=== PATIENT | male | born 1955 | race Caucasian/White ===

== ENCOUNTER → 2017-10-30 | Day surgery (SDC) | payer OTHER ==
[~2017-10-30] MED LIST: Midazolam 1 MG/ML 2 ML SDV ONE; Propofol 200 MG/20 ML SDV ONE; fentaNYL 100 MCG/2 ML SDV ONE
[2017-10-30] MEDS: Lactated Ringers 1,000 ML IV SCH (08:25)
--- NOTE | 2017-10-30 12:15 | OR ---
DATE OF PROCEDURE: 10/30/2017 PREOPERATIVE DIAGNOSES: 1. History of adenomatous colon polyps. 2. Father had colon cancer. POSTOPERATIVE DIAGNOSES: 1. Diverticulosis. 2. History of adenomatous colon polyps. 3. Father had colon cancer. PROCEDURE: Colonoscopy to the cecum. ANESTHESIA: IV anesthesia with monitored anesthesia care. SURGEON: Stephen Hall MD INDICATION: This 62-year-old white male is here for a colonoscopy. He has a personal history of adenomatous polyp, removed 5 years ago. His father also had colon cancer. I counseled him for the procedure including risks and alternatives, and he gave his informed consent to proceed. DESCRIPTION OF PROCEDURE: The patient was placed in the left lateral decubitus position. IV anesthesia was administered by the Anesthesia Service. Time-out was held. A rectal exam was performed, which was unremarkable. The flexible video Olympus colonoscope was introduced through his anus, up his rectum and out his colon, all the way to the cecum. En route, we saw a few scattered left-sided diverticula. There was no bleeding or inflammation associated with them. Once the cecum was reached, the scope was slowly withdrawn, examining the mucosa throughout. No additional mucosal abnormalities were noted. The scope was retroflexed in the rectum with the distal rectum appearing unremarkable. The scope was straightened and removed. He tolerated the procedure well. Stephen Hall MD /[id number]
== END ==
LOC: JP.SDS 08:09
PROVIDERS: ATTEND Surgery
DX: Z12.11 Encounter for screening for malignant neoplasm of colon (principal); K57.30 Diverticulosis of large intestine without perforation or abscess without bleeding; Z86.010 Personal history of colon polyps; Z80.0 Family history of malignant neoplasm of digestive organs; Z88.0 Allergy status to penicillin
CPT/HCPCS: 45378; J2250; J2704; J3010; J7120

== ENCOUNTER 2023-04-12 10:00 | Day surgery (SDC) | payer OTHER, MEDICARE ==
[2023-04-12] MEDS: Lactated Ringers 1,000 ML IV SCH (10:42)
[2023-04-12] MEDS ORDERED: fentaNYL 50 MCG/ML SDV ONE (12:19)
[2023-04-12] MEDS ORDERED: Propofol 200 MG/20 ML SDV ONE (12:19)
[2023-04-12] MEDS ORDERED: Midazolam 1 MG/ML 2 ML SDV ONE (12:19)
[2023-04-12] MEDS ORDERED: Ondansetron 4 MG/2 ML SDV ONE (12:33)
== END 2023-04-12 14:09 | disposition home or self-care (01) ==
LOC: JP.SDS 10:00
PROVIDERS: ATTEND Student in an Organized Health Care Education/Training Program
DX: Z12.11 Encounter for screening for malignant neoplasm of colon (principal); K63.5 Polyp of colon
CPT/HCPCS: 45380; 88305; J2250; J2405; J2704; J3010; J7120